=== PATIENT | female | born 1975 | race African-American/Black ===

== ENCOUNTER 2022-11-12 02:25 | Emergency (ER) | payer OTHER ==
[~2022-11-12] VITALS: Ht 167.6 cm; Wt 70.0 kg
[2022-11-12] MEDS ORDERED: SODIUM CHLORIDE 0.9% 1,000 ML IV ONE (03:00)
[2022-11-12] MEDS ORDERED: LORAZEPAM 2MG/ML CPJ IV ONE (03:00)
[2022-11-12] MEDS ORDERED: LEVETIRACETAM 1000MG PREMIX 100 ML IV ONE (03:00)
[2022-11-12 03:27] LABS: HEMATOCRIT. 36.8 % (36.0-48.0); HEMOGLOBIN. 11.4 g/dL (12.0-16.0); MEAN CORPUSCULAR HEMOGLOBIN 20.5 pg (28.0-32.0); MEAN CORPUSCULAR VOLUME 66.3 fL (81.0-99.0); PLATELET 497 x1000/uL (130-400); RED BLOOD CELL COUNT 5.54 mill/uL (4.2-5.4)
[2022-11-12 03:55] LABS: CHLORIDE 96 mEq/L (98-107)
[2022-11-12 04:01] LABS: ETHANOL BLOOD < 10 mg/dL
[2022-11-12] MEDS ORDERED: KEPP500 MT (05:38)
[2022-11-12 06:15] VITALS: BP 158/67
[2022-11-12 06:18] LABS: PLATELET ESTIMATE INCREASED
[2022-11-12 06:22] LABS: *AMPHETAMINES SCREEN URINE NEGATIVE (NEGATIVE); *BARBITURATES SCREEN URINE NEGATIVE (NEGATIVE); *BENZODIAZEPINES SCREEN URINE NEGATIVE (NEGATIVE); *COCAINE SCREEN URINE NEGATIVE (NEGATIVE); METHADONE URINE SCREEN NEGATIVE (NEGATIVE); OPIATES URINE SCREEN NEGATIVE (NEGATIVE); PHENCYCLIDINE URINE SCREEN NEGATIVE (NEGATIVE)
[2022-11-12 06:28] LABS: CANNABINOID URINE SCREEN PRESUMTIVE POSITIVE (NEGATIVE)
== END 2022-11-12 06:54 | disposition home or self-care (01) ==
LOC: ER 02:29
DX: R56.9 Unspecified convulsions (principal)
CPT/HCPCS: 36415; 70450; 71045; 80053; 80305; 80320; 85025; 93005; 96365; 96375; 99285; J1953; J2060; Z7610; G0480

== ENCOUNTER 2023-12-25 13:34 | Emergency (ER) | payer OTHER ==
[~2023-12-25] VITALS: Ht 177.8 cm; Wt 105.0 kg
[~2023-12-25 13:34] MED LIST: KEPP500 MT
[2023-12-25 13:36] VITALS: O2SAT 98
[2023-12-25 14:39] VITALS: BP 154/88; PULSE 78; RESP 17; TEMP 98.9
[2023-12-25 14:44] LABS: CLARITY URINE TURBID (CLEAR); COLOR URINE DARK YELLOW (YELLOW); GLUCOSE URINE NEGATIVE (NEGATIVE); KETONES URINE 4+ (NEGATIVE); LEUKOCYTE ESTERASE URINE 1+ (NEGATIVE); NITRITE URINE NEGATIVE (NEGATIVE); OCCULT BLOOD URINE NEGATIVE (NEGATIVE); PH URINE 6.5 (4.5-8.0); PROTEIN URINE 1+ (NEGATIVE); SPECIFIC GRAVITY URINE 1.028 (1.005-1.030)
[2023-12-25 14:58] LABS: MUCUS URINE 1+ /lpf (< = 2+); SQUAMOUS EPITHELIAL CELL URINE 2+ /lpf (RARE/1+)
[2023-12-25 14:59] LABS: RBC URINE 0-2 /hpf (0-2); WBC URINE 0-2 /hpf (0-2)
[2023-12-25 15:00] LABS: BACTERIA URINE 1+
[2023-12-25 15:06] LABS: BASOPHILS % 0.2 % (0.0-2.0); EOSINOPHILS % 0.3 % (0.0-5.0); HEMATOCRIT. 47.7 % (36.0-48.0); HEMOGLOBIN. 15.8 g/dL (12.0-16.0); LYMPHOCYTES % 14.6 % (20.0-50.0); MEAN CORPUSCULAR HEMOGLOBIN 30.3 pg (28.0-32.0); MEAN CORPUSCULAR HGB CONC 33.2 g/dL (31.0-37.0); MEAN CORPUSCULAR VOLUME 91.5 fL (81.0-99.0); MEAN PLATELET VOLUME 7.9 fl (7.4-10.4); MONOCYTES % 12.1 % (2.0-8.0); NEUTROPHILS % 72.8 % (40.0-76.0); PLATELET 162 x1000/uL (130-400); RED BLOOD CELL COUNT 5.22 mill/uL (4.2-5.4); RED CELL DISTRIBUTION WIDTH 13.9 % (11.6-14.6); WHITE BLOOD COUNT 5.6 x1000/uL (4.5-11.0)
[2023-12-25 15:17] LABS: CARBON DIOXIDE 31 mEq/L (21-32); CHLORIDE 96 mEq/L (98-107); POTASSIUM 3.3 mEq/L (3.5-5.1); SODIUM 135 mEq/L (136-145)
[2023-12-25 15:18] LABS: CALCIUM 8.9 mg/dL (8.7-10.4)
[2023-12-25 15:22] LABS: CREATININE 0.7 mg/dL (0.6-1.0)
[2023-12-25 15:23] LABS: GLUCOSE 103 mg/dL (70-105); UREA NITROGEN BLOOD 11 mg/dL (9-23)
[2023-12-25 15:24] LABS: ALANINE AMINOTRANSFERASE 64 IU/L (10-49); ALBUMIN 4.1 g/dL (3.2-4.8); ASPARTATE AMINOTRANSFERASE 80 IU/L (<34)
[2023-12-25 15:25] LABS: BILIRUBIN DIRECT 0.8 mg/dL (<=3.0); BILIRUBIN TOTAL 1.6 mg/dL (0.1-1.0); PROTEIN TOTAL 7.6 g/dL (6.0-8.3)
[2023-12-25 15:27] LABS: TROPONIN I HIGH SENSITIVITY 168 ng/L (3.0-34)
[2023-12-25 15:49] LABS: PROTHROMBIN TIME 11.4 sec (9.6-11.0)
[2023-12-25] MEDS ORDERED: ASPIRIN 325MG EC TABLET PO NR (16:45)
[2023-12-25] MEDS ORDERED: ENOXAPARIN 120MG/0.8ML SYR SUBCUT SCH (18:00)
== END 2023-12-25 16:41 | disposition admitted as inpatient to this hospital (09) ==
LOC: ER 13:34 → EDBEDREQ 14:18 → EDBEDREQTM 16:50 → EDBEDREQ 16:50 → UNDOADMIN 17:32 → 8WST 17:32 → 5WST 12-26 09:51 → 8WST 12-26 14:28 → 5WST 12-26 14:28 → 8WST 12-26 18:43 → MICUSO 12-26 18:43
DX: I21.4 Non-ST elevation (NSTEMI) myocardial infarction (principal); E87.1 Hypo-osmolality and hyponatremia; E87.6 Hypokalemia; G40.909 Epilepsy, unspecified, not intractable, without status epilepticus; I11.0 Hypertensive heart disease with heart failure; I48.91 Unspecified atrial fibrillation; I50.9 Heart failure, unspecified
CPT/HCPCS: 36415; 71045; 80048; 80076; 81003; 83880; 84484; 85025; 99291

== ENCOUNTER 2024-01-25 20:14 | Emergency (ER) | payer OTHER ==
[~2024-01-25] VITALS: Ht 180.3 cm; Wt 82.0 kg
[2024-01-25 20:18] VITALS: O2SAT 98
[2024-01-25 20:40] VITALS: TEMP 98.5
[2024-01-25] MEDS: LEVETIRACETAM 500MG PREMIX 100 ML IV ONE (21:37)
[2024-01-25] MEDS: LORAZEPAM 2MG/ML INJ IV ONE (21:37)
[2024-01-25 23:19] LABS: HEMATOCRIT. 55.1 % (36.0-48.0); HEMOGLOBIN. 18.2 g/dL (12.0-16.0); MEAN CORPUSCULAR HEMOGLOBIN 30.8 pg (28.0-32.0); MEAN CORPUSCULAR HGB CONC 33.1 g/dL (31.0-37.0); MEAN CORPUSCULAR VOLUME 92.9 fL (81.0-99.0); MEAN PLATELET VOLUME 7.7 fl (7.4-10.4); PLATELET 201 x1000/uL (130-400); RED BLOOD CELL COUNT 5.93 mill/uL (4.2-5.4); RED CELL DISTRIBUTION WIDTH 15.3 % (11.6-14.6); WHITE BLOOD COUNT 9.2 x1000/uL (4.5-11.0)
[2024-01-25 23:20] LABS: DIFFERENTIAL COMMENT 1
[2024-01-25 23:27] LABS: CHLORIDE 102 mEq/L (98-107); POTASSIUM 3.6 mEq/L (3.5-5.1); SODIUM 137 mEq/L (136-145)
[2024-01-25 23:28] LABS: CALCIUM 9.8 mg/dL (8.7-10.4); CARBON DIOXIDE 21 mEq/L (21-32)
[2024-01-25 23:29] LABS: PLATELET ESTIMATE NORMAL
[2024-01-25 23:33] LABS: CREATININE 0.8 mg/dL (0.6-1.0); GLUCOSE 166 mg/dL (70-105); UREA NITROGEN BLOOD 6 mg/dL (9-23)
[2024-01-25] MEDS ORDERED: ONDANSETRON HCL 4MG/2ML INJ IV STA (23:45)
[2024-01-25] MEDS ORDERED: MAGNESIUM/ALUMINUM HYDROXIDE/SIMETHICONE 30ML UDC PO STA (23:50)
[2024-01-25] MEDS ORDERED: DICYCLOMINE 10 MG/5 ML ORAL SYR PO STA (23:50)
[2024-01-25 23:52] LABS: ETHANOL BLOOD < 10 mg/dL (<10)
[2024-01-26] MEDS: DICYCLOMINE HCL 10MG CAPSULE PO NR (00:03)
[2024-01-26] MEDS: MAGNESIUM/ALUMINUM HYDROXIDE/SIMETHICONE 30ML UDC PO NR (00:03)
[2024-01-26] MEDS: ONDANSETRON HCL 4MG/2ML INJ IV NR (00:03)
[2024-01-26] MEDS: SODIUM CHLORIDE 0.9% 1,000 ML IV ONE (00:04)
[2024-01-26 00:12] LABS: HCG SCREEN NEGATIVE
[2024-01-26 01:31] LABS: CLARITY URINE CLEAR (CLEAR); COLOR URINE YELLOW (YELLOW); GLUCOSE URINE TRACE (NEGATIVE); KETONES URINE 3+ (NEGATIVE); LEUKOCYTE ESTERASE URINE TRACE (NEGATIVE); NITRITE URINE NEGATIVE (NEGATIVE); OCCULT BLOOD URINE 2+ (NEGATIVE); PH URINE 5.5 (4.5-8.0); PROTEIN URINE 3+ (NEGATIVE); SPECIFIC GRAVITY URINE 1.021 (1.005-1.030)
[2024-01-26 01:49] LABS: *AMPHETAMINES SCREEN URINE NEGATIVE (NEGATIVE); *BARBITURATES SCREEN URINE NEGATIVE (NEGATIVE); *BENZODIAZEPINES SCREEN URINE NEGATIVE (NEGATIVE); *COCAINE SCREEN URINE NEGATIVE (NEGATIVE); CANNABINOID URINE SCREEN PRESUMPTIVE POSITIVE (NEGATIVE); ECSTASY MDMA SCREEN URINE NEGATIVE (NEGATIVE); METHADONE URINE SCREEN NEGATIVE (NEGATIVE); OPIATES URINE SCREEN NEGATIVE (NEGATIVE); PHENCYCLIDINE URINE SCREEN NEGATIVE (NEGATIVE)
[2024-01-26] MEDS: METOCLOPRAMIDE HCL 10MG/2ML VIAL IV ONE (02:03)
[2024-01-26 04:20] LABS: BACTERIA URINE TRACE; RBC URINE 0-2 /hpf (0-2); SQUAMOUS EPITHELIAL CELL URINE FEW /lpf (RARE/1+); WBC URINE 0-2 /hpf (0-2)
[2024-01-26] MEDS ORDERED: METO-293 MT (04:25)
[2024-01-26] MEDS ORDERED: KEPP500 MT (04:25)
[2024-01-26 05:10] VITALS: BP 187/113; PULSE 99; RESP 13
== END 2024-01-26 05:10 | disposition home or self-care (01) ==
LOC: ER 20:14
DX: G40.802 Other epilepsy, not intractable, without status epilepticus (principal); R10.84 Generalized abdominal pain
CPT/HCPCS: 80048; 80320; 82962; 84703; 83690; 85025; 36415; 70450; 96365; 96375 ×2; 99285; 80305; 81003; 74176; 96361; J1953; J2060; J7030; Z7610; J2765; J2405; G0480